=== PATIENT | female | born 1965 | race Caucasian/White ===

== ENCOUNTER 2022-10-23 09:38 | Emergency (ER) | payer MEDICAID, OTHER ==
[~2022-10-23] VITALS: Ht 154.9 cm; Wt 70.3 kg
[2022-10-23] MEDS ORDERED: IV NORMAL SALINE 1000 ML BAG IV ONE (09:45)
[2022-10-23] MEDS ORDERED: SIMV10TA98 PO (09:46)
[2022-10-23] MEDS ORDERED: LOSA25TA27 PO (09:46)
[2022-10-23 10:10] LABS: HEMATOCRIT 38.5 % (31.2-41.9); MEAN CORPUSCULAR HEMOGLOBIN 27.2 uug (24.7-32.8); MEAN CORPUSCULAR VOLUME 84.3 fL (75.5-95.3); PLATELET COUNT (AUTO) 180 K/uL (179-408)
--- NOTE | 2022-10-23 10:15 | NUR ---
Patient is resting comfortably on gurney with eyes closed. PATIENT IS PAIN FREE AT THIS TIME.
[2022-10-23 10:16] LABS: CARBON DIOXIDE 25 mmol/L (21-32); CHLORIDE 105 mmol/L (98-107); CREATININE 0.8 mg/dL (0.6-1.3); POTASSIUM 3.4 mmol/L (3.5-5.1); UREA NITROGEN, BLOOD 15 mg/dL (7-18)
[2022-10-23 13:00] VITALS: O2SAT 97
--- NOTE | 2022-10-23 13:08 | NUR ---
Copies of all the tests results were given to patient.
--- NOTE | 2022-10-23 13:09 | NUR ---
IV was removed. Catheter intact and site benign. Pressure and 4x4 gauze applied to site. No bleeding noted. Patient discharged to home by Dr Marquis in stable condition with steady gait. Written and verbal after care instructions given. Patient verbalized understanding and compliance of instructions. Stressed follow up with primary doctor and neurologist or return to ER for worsening s/s.
== END 2022-10-23 13:13 | disposition home or self-care (01) ==
LOC: ER 09:38
DX: R55 Syncope and collapse (principal); I10 Essential (primary) hypertension; R73.9 Hyperglycemia, unspecified; Z79.899 Other long term (current) drug therapy
CPT/HCPCS: 99284; 96360; 80048; 85025; 84484 ×2; 36415; 93005; J7040; A4663